=== PATIENT | female | born 1995 | race Caucasian/White ===

== ENCOUNTER → 2018-05-06 18:39 | Observation (INO) ==
[2018-05-06 15:44] LABS: Basophils % 0.2 %; Eosinophils # 0.1 K/mcL (0.0-0.6); Eosinophils % 1.2 %; Hematocrit 31.9 % (35.3-44.9); Immature Granulocytes % 0.7 % (0-4); Lymphocytes # 2.1 K/mcL (0.6-4.6); Lymphocytes % 17.4 %; Mean Corpuscular HGB Conc 34.5 g/dL (31.6-35.5); Mean Corpuscular Hemoglobin 29.6 pg (28.0-33.3); Mean Corpuscular Volume 85.8 fL (83.0-100.0); Mean Platelet Volume 9.7 fL (9.4-12.4); Monocytes # 0.7 K/mcL (0.0-1.3); Monocytes % 5.6 %; Platelet Count 205 K/mcL (140-400); Red Blood Count 3.72 M/mcL (3.82-4.97); Red Cell Distribution Width 13.1 % (11.5-14.5); Segmented Neutrophils % 74.9 %
[2018-05-06 15:45] LABS: Bilirubin,Urine Negative (Negative); Blood,Urine Large (Negative); Color,Urine Yellow (Yellow); Glucose,Urine (UA) 250 mg/dL (Normal); Ketones,Urine Negative (Negative); Leukocyte Esterase,Urine Negative (Negative); Nitrite,Urine Negative (Negative); PH,Urine 6.5 pH Units (5.0-8.0); Protein,Urine Trace mg/dL (Neg-Trace); Specific Gravity,Urine 1.018 (1.010-1.025); Urobilinogen,Urine Normal (Normal)
[2018-05-06 15:47] LABS: Bacteria,Urine Few per hpf (None-Few); Hyaline Casts,Urine None Seen per lpf (None-Few); Squamous Epithelial Cell,Urine Many per lpf (None-Few)
[2018-05-06 15:50] LABS: Clarity,Urine Hazy (Clear)
[2018-05-06 15:51] LABS: Amphetamine Screen,Urine Negative ng/mL (Cutoff=1000); Barbiturate Screen,Urine Negative ng/mL (Cutoff=200); Benzodiazepines Screen,Urine Negative ng/mL (Cutoff=200); Cannabinoid Screen,Urine Negative ng/mL (Cutoff = 50); Cocaine Screen,Urine Negative ng/mL (Cutoff= 300); Opiate Screen,Urine Negative ng/mL (Cutoff=300); Phencyclidine Screen,Urine Negative ng/mL (Cutoff=25)
[2018-05-06 15:58] LABS: Amorphous Sediment,Urine Many (Few)
--- NOTE | 2018-05-06 16:21 | OB/GYN History & Physical ---
Date of Encounter: 05/06/18 Time of Encounter: 16:40 Assessment and Plan (1) Urinary tract infection affecting care of mother in second trimester, antepartum Current visit: Yes Status: Acute 22yo at 21wks GA who presents from home with concern for UTI 1. UTI - positive LE and NITRITES on UA - reflexed to culture, will await results to ensure sensitivity - rx sent to pharmacy for Macrobid for empirical treatment - unlikely pyelo given patient is afebrile, VSS, HDS, no hematuria, no CVA tenderness - discussed symptoms with patient should they worsen 2. PNC - UTD PNC with Dr. Hernandez - reports active movement - FHT 150s-160s by doppler - next scheduled appt 05/26 Dispo: Patient was discharged to home with urinary precaution(s) should symptoms worsen. Will f/u on culture to ensure adequate coverage with macrobid. Culture sent, will have patient f/u with Dr. Hernandez as scheduled for routine PNV. MD AC History of Present Illness Chief complaint: Concern for UTI HPI: Ms. Garcia is a 22 year old female at 21wks GA who presents with concern for UTI. UTD PNC with Dr. Hernandez. Patient reports concern for a kidney infection as she reports having lower back discomfort and back spasms with voiding. She reports no blood in the urine however states to have the urge to void but minimal urine is excreted. She denies fevers, chills, nausea, vomiting, diarrhea. Thus far she has had an uncomplicated . She does have a history of one prior UTI that was treated. Next scheduled appointment is with Dr. Hernandez on May 26. Past Med Surg Social Fam HX - Past Medical History Medical history: no medical history Psychiatric history: ADHD - Past Surgical History Surgical History: other Additional surgical history: breast augmentation in 2016 - Social History Smoking Status: Never smoker Smokeless Tobacco Status: No Alcohol use: none Drug use: none - Family History Father Living Status: Still Living Hx Family Cardiac Disorders: Yes (HTN) Obstetrical History - Pregnancies : 1 Medications and Allergies Acetaminophen [Tylenol] 500 mg PO Q6HR 05/06/18 [History] Nitrofurantoin (BID) [Macrobid] 100 mg PO BID 7 Days #14 capsule 05/06/18 [Rx] Ondansetron HCl [Zofran] 4 mg PO Q6HR PRN 05/06/18 [History] Pnv Cmb#21/Iron/Folic Acid [ Complete Caplet] 1 each PO DAILY 05/06/18 [History] raNITIdine HCl [Zantac] 150 mg PO BID 05/06/18 [History] Allergy/AdvReac Type Severity Reaction Status Date / Time No Known Allergies Allergy Verified 05/06/18 15:34 Review of System OB All systems PM: reviewed and no additional remarkable complaints except as stated Exam - Vital Signs Vital signs: VSS, HDS Afebrile Non-tachycardic - Constitutional Constitutional: well developed - HEENT HEENT: Normocephaly, Mucus Membranes Moist - Neck Neck exam: full ROM - Lungs Respiratory exam: CTAB - Cardiovascular Cardiovascular exam: RRR - Abdomen Abdomen: Present: bowel sounds normal - Vagina Vagina: Present: normal moisture - Comments Comments: Abdomen: soft, nonTTP Musculoskeletal: NO CVA TENDERNESS appreciated. Lower back discomfort reproducible with palpation. General: well-appearing, NAD, appears stated age. Results Result Diagrams: 05/06/18 15:36 Abnormal lab results WBC 12.0 K/mcL (4.3-11.1) H 05/06/18 15:36 RBC 3.72 M/mcL (3.82-4.97) L 05/06/18 15:36 Hgb 11.0 g/dL (11.5-15.4) L 05/06/18 15:36 Hct 31.9 % (35.3-44.9) L 05/06/18 15:36 Neutrophils # 9.0 K/mcL (1.6-8.9) H 05/06/18 15:36 Urine Clarity Hazy (Clear) A 05/06/18 15:25 Urine Glucose (UA) 250 mg/dL (Normal) H 05/06/18 15:25 Urine Blood Large (Negative) H 05/06/18 15:25 Urine Microscopic RBC 5-15 per hpf (0-3) H 05/06/18 15:25 Urine Microscopic WBC 3-5 per hpf (0-3) H 05/06/18 15:25 Ur Squamous Epith Cells Many per lpf (None-Few) H 05/06/18 15:25 Amorphous Sediment Many (Few) H 05/06/18 15:25 All other labs normal. - VTE Reasons for not Prescribing Prophylaxis: Treatment not Indicated - Low risk for VTE
== END | disposition home or self-care (01) ==
LOC: 1NENULAB
PROVIDERS: ADMIT Advanced Practice Midwife; ATTEND Advanced Practice Midwife

== ENCOUNTER → 2020-07-27 17:45 | Observation (INO) ==
[2020-07-27 15:26] LABS: Bilirubin,Urine Negative (Negative); Blood,Urine Negative (Negative); Clarity,Urine Clear (Clear); Color,Urine Light-Yellow (Yellow); Glucose,Urine (UA) Normal (Normal); Ketones,Urine Negative (Negative); Leukocyte Esterase,Urine Negative (Negative); Nitrite,Urine Negative (Negative); Protein,Urine Negative (Neg-Trace); Specific Gravity,Urine 1.015 (1.010-1.025); Urobilinogen,Urine Normal (Normal)
== END | disposition home or self-care (01) ==
LOC: 1NENULAB
PROVIDERS: ADMIT Obstetrics & Gynecology; ATTEND Obstetrics & Gynecology

== ENCOUNTER → 2020-08-25 18:11 | Observation (INO) ==
[2020-08-25 09:52] LABS: Basophils % 0.4 %; Eosinophils # 0.1 K/mcL (0.0-0.6); Eosinophils % 1.3 %; Hematocrit 33.6 % (35.3-44.9); Hemoglobin 11.2 g/dL (11.5-15.4); Immature Granulocytes % 0.6 % (0-4); Lymphocytes # 1.9 K/mcL (0.6-4.6); Lymphocytes % 17.8 %; Mean Corpuscular HGB Conc 33.3 g/dL (31.6-35.5); Mean Corpuscular Hemoglobin 27.8 pg (28.0-33.3); Mean Corpuscular Volume 83.4 fL (83.0-100.0); Mean Platelet Volume 10.1 fL (9.4-12.4); Monocytes # 0.7 K/mcL (0.0-1.3); Monocytes % 6.3 %; Platelet Count 201 K/mcL (140-400); Red Blood Count 4.03 M/mcL (3.82-4.97); Segmented Neutrophils % 73.6 %; White Blood Count 10.9 K/mcL (4.3-11.1)
[2020-08-25 09:55] LABS: Protein/Creatinine Ratio,Urine 0.26 mg/mg (0.00-0.20)
[2020-08-25 10:05] LABS: Alanine Aminotransferase 7 Units/L (7-52); Aspartate Amino Transferase 9 Units/L (13-39); BUN/Creatinine Ratio 19 (6-26); Blood Urea Nitrogen 8 mg/dL (6-20); Lactate Dehydrogenase 115 Units/L (140-271); Uric Acid 3.2 mg/dL (2.3-7.6); eGFR For African Americans > 60 (> 60); eGFR For Non-African Americans > 60 (> 60)
[2020-08-25 10:43] LABS: Amorphous Sediment,Urine Few per hpf (None-Few); Bacteria,Urine Few per hpf (None-Few); Bilirubin,Urine Negative (Negative); Blood,Urine Negative (Negative); Clarity,Urine Ex.Turbid (Clear); Color,Urine Yellow (Yellow); Glucose,Urine (UA) Normal (Normal); Ketones,Urine Negative (Negative); Leukocyte Esterase,Urine Negative (Negative); Nitrite,Urine Negative (Negative); PH,Urine 7.5 pH Units (5.0-8.0); Protein,Urine Trace mg/dL (Neg-Trace); Specific Gravity,Urine 1.024 (1.010-1.025); Squamous Epithelial Cell,Urine Few per hpf (None-Few); Urobilinogen,Urine Normal (Normal)
[2020-08-25] MEDS: Acetaminophen/Butalbital/CaffeineTABLET PO PRN ×2 (11:43→17:17)
[2020-08-25 12:20] LABS: Candida DNA Not Detected (Not Detect); Gardnerella DNA Not Detected (Not Detect); Trichomonas DNA Not Detected (Not Detect)
[~2020-08-25 18:11] MED LIST: Ringers Solution, Lactated 1,000 ML IVC ONE; Ringers Solution, Lactated 1,000 ML ONE
== END | disposition home or self-care (01) ==
LOC: 1NENULAB
PROVIDERS: ADMIT Registered Nurse; ATTEND Registered Nurse

== ENCOUNTER 2020-08-29 11:11 | Inpatient (IN) ==
[2020-08-29] MEDS ORDERED: CeFAZolin 2,000 MG/50 ML BAG IVPB ONE (11:23)
[2020-08-29] MEDS ORDERED: Oxytocin 20 units/ LR 1000 mL 20 UNIT/1,000 ML BAG IVC ONE (11:23)
[2020-08-29] MEDS ORDERED: Metoclopramide 10 MG/2 ML VIAL IVP ONE (11:23)
[2020-08-29] MEDS ORDERED: Ringers Solution, Lactated 1,000 ML IVC ONE (11:23)
[2020-08-29] MEDS ORDERED: Famotidine 20 MG/2 ML VIAL IVP ONE (11:23)
[2020-08-29] MEDS ORDERED: Oxytocin 20 units/ LR 1000 mL 20 UNIT/1,000 ML BAG IVC SCH ×2 (11:30→21:16)
[2020-08-29] MEDS ORDERED: Ringers Solution, Lactated 1,000 ML IVC SCH (11:30)
[2020-08-29 12:05] LABS: Basophils % 0.3 %; Eosinophils # 0.1 K/mcL (0.0-0.6); Eosinophils % 0.9 %; Hemoglobin 12.2 g/dL (11.5-15.4); Immature Granulocytes % 0.8 % (0-4); Lymphocytes % 16.9 %; Mean Corpuscular Hemoglobin 27.7 pg (28.0-33.3); Mean Corpuscular Volume 84.1 fL (83.0-100.0); Mean Platelet Volume 9.9 fL (9.4-12.4); Monocytes # 0.6 K/mcL (0.0-1.3); Monocytes % 5.5 %; Neutrophils # 8.8 K/mcL (1.6-8.9); Platelet Count 204 K/mcL (140-400); Red Cell Distribution Width 14.2 % (11.5-14.5); Segmented Neutrophils % 75.6 %; White Blood Count 11.6 K/mcL (4.3-11.1)
[2020-08-29 12:18] LABS: Amphetamine Screen,Urine Negative ng/mL (Cutoff=1000); Barbiturate Screen,Urine Positive ng/mL (Cutoff=200); Benzodiazepines Screen,Urine Negative ng/mL (Cutoff=200); Cannabinoid Screen,Urine Negative ng/mL (Cutoff = 50); Cocaine Screen,Urine Negative ng/mL (Cutoff= 300); Opiate Screen,Urine Negative ng/mL (Cutoff=300); Phencyclidine Screen,Urine Negative ng/mL (Cutoff=25)
[2020-08-29] MEDS ORDERED: EPHEDrine 50 MG/ML VIAL ONE ×2 (12:26→16:47)
[2020-08-29] MEDS ORDERED: Ondansetron 4 MG/2 ML VIAL ONE ×2 (12:26→16:49)
[2020-08-29] MEDS ORDERED: *HR* FentaNYL (PF) 100 MCG/2 ML VIAL ONE ×2 (12:26→16:47)
[2020-08-29] MEDS ORDERED: *HR* Morphine Sulfate/PF 10 MG/10 ML AMPUL ONE ×2 (12:26→16:47)
[2020-08-29] MEDS ORDERED: Acetaminophen IV 0 MG/0 ML BAG IVPB ONE (12:27)
[2020-08-29] MEDS ORDERED: Ketorolac 30 MG/ML VIAL ONE ×2 (12:27→16:49)
[2020-08-29] MEDS ORDERED: Ondansetron 4 MG/2 ML VIAL IVP PRN ×2 (12:41→21:16)
[2020-08-29] MEDS ORDERED: *HR* OxyCODONE Immed Rel 5 MG TABLET PO PRN (12:41)
[2020-08-29] MEDS ORDERED: *HR* HYDROmorphone (PF) 1 MG/ML SYRINGE IVP PRN (12:41)
[2020-08-29] MEDS ORDERED: Acetaminophen IV 1,000 MG/100 ML BAG IVPB ONE (16:50)
[2020-08-29] MEDS ORDERED: *HR* Phenylephrine 10 MG/ML VIAL ONE (18:24)
[2020-08-29] MEDS ORDERED: Simethicone 80 MG TAB.CHEW PO PRN (21:16)
[2020-08-29] MEDS ORDERED: Metoclopramide 10 MG/2 ML VIAL IVP PRN (21:16)
[2020-08-29] MEDS: *HR* OxyCODONE/APAP 5/325 TABLET PO PRN (21:36)
[2020-08-30] MEDS: Ibuprofen 600 MG TABLET PO SCH ×4 (00:11→18:56)
[2020-08-30] MEDS: Acetaminophen 325 MG TABLET PO SCH ×3 (02:30→18:57)
[2020-08-30 05:01] LABS: Basophils % 0.2 %; Eosinophils % 0.2 %; Hematocrit 31.5 % (35.3-44.9); Immature Granulocytes % 0.5 % (0-4); Lymphocytes # 1.6 K/mcL (0.6-4.6); Lymphocytes % 12.8 %; Mean Corpuscular HGB Conc 33.3 g/dL (31.6-35.5); Mean Corpuscular Hemoglobin 28.4 pg (28.0-33.3); Mean Corpuscular Volume 85.1 fL (83.0-100.0); Monocytes # 0.8 K/mcL (0.0-1.3); Monocytes % 6.5 %; Neutrophils # 10.1 K/mcL (1.6-8.9); Platelet Count 201 K/mcL (140-400); Red Cell Distribution Width 13.9 % (11.5-14.5); Segmented Neutrophils % 79.8 %; White Blood Count 12.6 K/mcL (4.3-11.1)
[2020-08-30 05:02] LABS: Hemoglobin 10.5 g/dL (11.5-15.4)
[2020-08-30] MEDS: *HR* OxyCODONE/APAP 5/325 TABLET PO PRN ×3 (05:57→18:56)
[2020-08-30] MEDS ORDERED: Prenatal Vit/FA 1 EACH TABLET PO SCH (09:00)
[2020-08-30 09:04] LABS: Protein/Creatinine Ratio,Urine 0.16 mg/mg (0.00-0.20)
[2020-08-30 12:29] VITALS: BP 97/56
== END 2020-08-30 19:54 | disposition home or self-care (01) | DRG 788 ==
LOC: 1NENULAB 11:11 → 1NENUOBS 21:18
PROVIDERS: ADMIT Student in an Organized Health Care Education/Training Program; ATTEND Student in an Organized Health Care Education/Training Program